=== PATIENT | male | born 1995 | race African-American/Black ===

== ENCOUNTER 2022-05-30 16:25 | Emergency (ER) | payer SELFPAY ==
[~2022-05-30] VITALS: Ht 205.7 cm; Wt 73.0 kg
[2022-05-30] MEDS ORDERED: METO-293 MT (21:24)
[2022-05-30] MEDS ORDERED: METOCLOPRAMIDE HCL 10MG TABLET PO ONE (21:30)
[2022-05-30] MEDS ORDERED: IBUPROFEN 600MG TABLET PO ONE (22:15)
[2022-05-30 22:36] VITALS: BP 123/89
== END 2022-05-30 22:37 | disposition home or self-care (01) ==
LOC: ER 16:25
DX: G44.209 Tension-type headache, unspecified, not intractable (principal); R11.2 Nausea with vomiting, unspecified; F10.129 Alcohol abuse with intoxication, unspecified; Y90.9 Presence of alcohol in blood, level not specified; F17.210 Nicotine dependence, cigarettes, uncomplicated; Z71.6 Tobacco abuse counseling
CPT/HCPCS: 99283; J8597